=== PATIENT | male | born 1985 | race African-American/Black ===

== ENCOUNTER 2016-09-21 20:44 | Emergency (ER) | payer OTHER ==
[~2016-09-21] VITALS: Ht 180.3 cm; Wt 70.0 kg
[~2016-09-21 20:44] MED LIST: Z.0.NO CURRENT MEDS
[2016-09-21 20:45] VITALS: BP 125/80; PULSE 106; RESP 20; TEMP 98; O2SAT 99
[2016-09-21] MEDS ORDERED: NORG1TAB28 PO (21:07)
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
[2016-09-21] MEDS ORDERED: BACL10TA PO (21:15)
[2016-09-21] MEDS ORDERED: IBUP800T23 PO (21:15)
[2016-09-21] MEDS ORDERED: KETOROLAC TROMETHAMINE 60 MG/2 ML (IM) VIAL IM ONE (21:15)
[2016-09-21] MEDS ORDERED: ORPHENADRINE INJ 60 MG/2 ML AMP IM ONE (21:15)
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
== END 2016-09-21 22:03 | disposition home or self-care (01) ==
LOC: NEPB 20:44
DX: S16.1XXA Strain of muscle, fascia and tendon at neck level, initial encounter (principal); S39.012A Strain of muscle, fascia and tendon of lower back, initial encounter; V49.40XA Driver injured in collision with unspecified motor vehicles in traffic accident, initial encounter
CPT/HCPCS: 71010; 72125; 96372; 99284; J1885; J2360